=== PATIENT | male | born 1945 | race Caucasian/White ===

== ENCOUNTER 2017-01-09 10:45 | Outpatient (CLI) | payer MEDICARE ==
--- NOTE | ~2017-01-09 | HEMODYNAMI ---
PATIENT:SHABBIR UMAÑA MEDICAL RECORD: [id number] : 45 LOCATION:D.CAT ADMISSION DATE: 01/09/17 Generatedon:01/09/201714:25 Patient name: SHABBIR UMAÑA Patient #: [id number] SSN: D OB: 1945 Date of study: 01/09/2017 Page: Of Hemodynamic Procedure Report Patient Data Patient Demographics Procedure consent was obtained First Name: SHABBIR Gender: Male Last Name: CHASIDY : 1945 Patient #: [id number] Age: 71 year(s) Race: Unknown Additional ID: [id number] Contact details Address: [address] [address] State: [place] City: [place] Zip code: [address] Past Medical History Allergies: No known allergies Admission Admission Data Admission Date: 01/09/2017 Admission Time: 10:45 Lab Results Lab Result Date: 01/09/2017 Lab Result Time: 11:00 Biochemistry Name Units Result Min Max BUN mg/dl 25 --(----)-* 7 18 Creatinine mg/dl 1.5 --(----)-* 0.6 1.3 CBC Name Units Result Min Max Hematocrit % 38 *-(----)-- 42 54 Hemoglobin g/dl 12.9 -*(----)-- 13.5 17.5 Procedure Procedure Types Cath Procedure Diagnostic Procedure C [facility] w/Coronaries Miscellaneous Procedures Moderate Sedation up to 30 minutes Procedure Description Procedure Date Procedure Date: 01/09/2017 Procedure Start Time: 13:58 Procedure End Time: 14:23 Procedure Staff Name Function Jose Chinchilla MD Performing Physician Fabby Bourgeois RN Nurse Carmen Oliveros RT Scrub Scottie Reyes RT Monitor Procedure Data Cath Procedure Fluoroscopy Diagnostic fluoroscopy Total fluoroscopy Time: 4.3 time: 4.3 min min Diagnostic fluoroscopy Total fluoroscopy dose: 861 dose: 861 mGy mGy Contrast Material Contrast Material Type Amount (ml) Isovue 300 77 Entry Location Entry Primary Successful Side Size Upsize Upsize Entry Closure Nick ccessful Closure Location (Fr) 1 (Fr) 2 (Fr) Remarks Device Remarks Radial Right 6 Fr Mechanical artery Short Compression Femoral Right 5 Fr Exoseal artery Estimated blood loss: 5 ml Diagnostic catheters Device Type Used For End Catheter Placement Terumo 5Fr Rex 110cm Procedure catheter Cordis 5Fr JL 4.0 Procedure Catheter (MP) Cordis 5Fr 3DRC Catheter Procedure (MP) Cordis 5Fr Pigtail Procedure Catheter (MP) Procedure Complications No complications Procedure Medications Medication Administration Route Dosage Oxygen NC 2 l/min Lidocaine 2% added to field 20 Heparin Flush Bag added to field 2 bags (1000units/500ml NS) 0.9% NaCl I.V. 100 ml/hr Versed I.V. 1 mg Fentanyl I.V. 50 mcg Versed I.V. 1 mg Fentanyl I.V. 50 mcg Fentanyl I.V. 25 mcg Radial Cocktail added to field 1 syringe (Verapomil 2mg/Nitro 400mcg/Heparin 1500units) Hemodynamics Rest HGB: 12.9 (g/dl) Heart Rate: 54 (bpm) Pressure Samples Time Site Value (mmHg) Purpose Heart Use Rate(bpm) 14:14 LV 118/16,24 EDP 52 14:14 AO 123/60(82) Pullback 63 Gradients Valve Time Site Site 2 Mean SEP/DFP Peak To Heart Use 1 (mmHg) (sec/min) Peak Rate (mmHg) (bpm) Aortic 14:14 LV AO 13 14 63 123/60(82) Calculations Valve P-P Mean Valve Index Valve Source Name Gradient Area Flow (cm2) Aortic 13 13 Snapshots Pre Cath Intra NCS Post Cath Vital Signs Time Heart Resp SPO2 etCO2 NIBP (mmHg) Rhythm Pain Sedation Rate (ipm) (%) (mmHg) Status Level (bpm) 13:48:15 56 19 100 27 130/66(98) A-Fib 0 (11) 10(A) , No pain 13:52:51 78 14 100 30 119/72(105) A-Fib 0 (11) 10(A) , No pain 13:57:32 74 15 98 27 119/62(95) A-Fib 0 (11) 10(A) , No pain 14:02:11 61 15 100 20 108/58(80) A-Fib 0 (11) 9(A) , No pain 14:06:49 63 16 100 19.7 108/61(81) A-Fib 0 (11) 9(A) , No pain 14:11:27 67 16 100 28.8 121/59(93) A-Fib 0 (11) 9(A) , No pain 14:16:35 68 15 100 36.4 133/70(89) A-Fib 0 (11) 9(A) , No pain 14:21:44 62 16 100 15.9 123/67(91) A-Fib 0 (11) 10(A) , No pain Medications Time Medication Route Dose Verified Delivered Reason Notes Effectiveness by by 13:46:46 Oxygen NC 2 l/min Jose Buffie used for Amor Bourgeois RN procedure 13:46:56 Lidocaine 2% added 20ml Jose Jose for local to vial Amor Chinchilla MD anesthetic field 13:47:03 Heparin Flush added 2 bags Jose Jose used for Bag to Amor Chinchilla MD procedure (1000units/500ml field NS) 13:47:13 0.9% NaCl I.V. 100 Jose Buffie Per ml/hr Amor Bourgeois RN physician 13:50:48 Radial Cocktail added 1 Jose Jose for not (Verapomil to syringe Amor Chinchilla MD vasodilation used, 2mg/Nitro field femoral 400mcg/Heparin access 1500units) due to anatomy. 13:55:40 Versed I.V. 1 mg Jose Buffie for sedation Amor Bourgeois RN 13:55:47 Fentanyl I.V. 50 mcg Jose Buffie for sedation Amor Bourgeois RN 14:00:50 Versed I.V. 1 mg Jose Buffie for sedation Amor Bourgeois RN 14:00:54 Fentanyl I.V. 50 mcg Jose Buffie for sedation Amor Bourgeois RN 14:05:17 Fentanyl I.V. 25 mcg Jose Buffie for sedation Amor Bourgeois RN Procedure Log Time Note 13:22:01 Informed consent obtained and on chart 13:22:17 Diagnostic Cath status Elective 13:22:21 Fabby Bourgeois RN sent for patient. Start room use. 13:22:22 Time tracking: Regular hours 13:22:26 Plan of Care:Hemodynamics will remain stable., Cardiac rhythm will remain stable., Comfort level will be maintained., Respiratory function will remain adequate., Patient/ family verbilizes understanding of procedure., Procedure tolerated without complication., Recovers from procedure without complications.. 13:31:54 H&P Date Dictated: 01/02/2017 Within 30 days and on chart., H&P Addendum completed by physician on day of procedure. (MUST COMPLETE FOR ALL OUTPATIENTS). 13:32:34 Lab Result : BUN 25 mg/dl 13:32:34 Lab Result : Creatinine 1.5 mg/dl 13:32:34 Lab Result : Hemoglobin 12.9 g/dl 13:32:34 Lab Result : Hematocrit 38 % 13:32:37 Lab results completed and on chart. 13:38:25 Patient received from Pre/Post Procedure Room to CCL 1 Alert and oriented. Tansferred to table in Supine position. 13:38:26 Warm blankets applied, and devan hugger turned on for patient comfort. 13:38:26 Correct patient and procedure confirmed by team. 13:38:27 ECG and BP/O2 sat monitors applied to patient. 13:46:46 Oxygen 2 l/min NC was administered by Fabby Bourgeois RN; used for procedure; 13:46:56 Lidocaine 2% 20ml vial added to field was administered by Jose Chinchilla MD; for local anesthetic; 13:47:03 Heparin Flush Bag (1000units/500ml NS) 2 bags added to field was administered by Jose Chinchilla MD; used for procedure; 13:47:13 0.9% NaCl 100 ml/hr I.V. was administered by Fabby Bourgeois RN; Per physician; 13:47:17 Vital chart was started 13:50:48 Radial Cocktail (Verapomil 2mg/Nitro 400mcg/Heparin 1500units) 1 syringe added to field was administered by Jose Chinchilla MD; for vasodilation; not used, femoral access due to anatomy. 13:51:53 Baseline sample Acquired. 13:53:26 Rhythm: atrial fibrillation 13:53:28 Pre-op teaching completed and patient verbalized understanding. 13:53:29 Family in waiting room. 13:53:31 Patient NPO since Midnight. 13:53:37 Patient allergic to No known allergies 13:53:39 Is the patient allergic to Iodine/contrast media? No. 13:53:41 Is patient on blood thinner?Yes 13:53:43 Patient diabetic? No. 13:53:46 Previous problem with sedation/anesthesia? No ? 13:53:47 Snore? Yes 13:53:48 Sleep apnea? No 13:53:48 Deviated septum? No 13:53:49 Opens mouth fully? Yes 13:53:49 Sticks out tongue? Yes 13:53:51 Airway obstruction? No ? 13:53:54 Dentures? No ? 13:54:08 Modified Main's test Ulnar < 7 seconds 13:54:10 Patient pain scale 0/10 ?. 13:54:14 IV patent on arrival in left forearm with 0.9% NaCl at [facility]. 13:54:19 Right Radial & Right Groin area was prepped with chlora-prep and draped in sterile fashion 13:54:20 Alarms reviewed by R. N. 13:54:20 Sharps counted by scrub and verified by R.N. 13:54:23 Use device set Radial Dx 13:54:24 MBrace Wrist Support opened to sterile field. 13:54:25 Acist Manifold opened to sterile field. 13:54:25 Acist Hand Control opened to sterile field. 13:54:27 Tegaderm 4 x 4 opened to sterile field. 13:54:28 Acist Syringe opened to sterile field. 13:54:28 Medline Cath Pack opened to sterile field. 13:54:29 Bag Decanter opened to sterile field. 13:54:29 Terumo 6Fr Slender Glidesheath opened to sterile field. 13:54:29 St Girma 260cm J .035 wire opened to sterile field. 13:54:35 Physician arrived 13:54:36 --------ALL STOP TIME OUT------ 13:54:36 Final Timeout: patient, procedure, and site verified with staff and physician. All members of the team are in agreement. 13:54:38 Right Radial & Right Groin site verified by team. 13:54:41 Physical assessment completed. ASA score P 2 - A patient with mild systemic disease as per Jose Chinchilla MD. 13:54:44 Sedation plan: IV Moderate Sedation Versed, Fentanyl 13:55:40 Versed 1 mg I.V. was administered by Fabby Bourgeois RN; for sedation; 13:55:47 Fentanyl 50 mcg I.V. was administered by Fabby Bourgeois RN; for sedation; 13:56:58 Procedure started. 13:56:58 Full Disclosure recording started 13:58:11 Local anesthetic to right radial artery with Lidocaine 2% by Jose Chinchilla MD.INITIAL ACCESS ONLY 13:58:46 A 6 Fr Short sheath was inserted into the Right Radial artery 13:59:08 A Terumo 5Fr Rex 110cm catheter was advanced over the wire and used for Procedure. 13:59:20 Zero performed for pressure channel P1 14:00:50 Versed 1 mg I.V. was administered by Fabby Bourgeois RN; for sedation; 14:00:54 Fentanyl 50 mcg I.V. was administered by Fabby Bourgeois RN; for sedation; 14:03:15 Terumo 5Fr [place] Sheath opened to sterile field. 14:03:25 Use device set Multipack Set 14:03:26 Diagnostic Infinity 5Fr Multipack catheter opened to sterile field. 14:03:35 PERCUTANEOUS ENTRY 19GA needle opened to sterile field. 14:04:09 unable to go radial due to anatomy. Moving to femoral approach. 14:04:12 Local anesthetic to right femoral artery with Lidocaine 2% by Jose Chinchilla MD.ADDITIONAL ACCESS 14:05:17 Fentanyl 25 mcg I.V. was administered by Fabby Bourgeois RN; for sedation; 14:05:29 A 5 Fr sheath was inserted into the Right Femoral artery 14:05:37 A Cordis 5Fr JL 4.0 Catheter (MP) was advanced over the wire and used for Procedure. 14:07:02 LCA angiography performed. 14:10:50 Catheter exchanged over wire. 14:10:56 A Cordis 5Fr 3DRC Catheter (MP) was advanced over the wire and used for Procedure. 14:11:30 RCA angiography performed. 14:12:42 Catheter exchanged over wire. 14:13:52 A Cordis 5Fr Pigtail Catheter (MP) was advanced over the wire and used for Procedure. 14:14:18 LV gram done using DESOUZA 14:14:21 Injector settings: Ml/sec: 10, Volume: 20, 14:14:41 EF : 45 % 14:14:50 LV hemodynamics recorded. 14:16:46 Catheter removed. 14:17:34 Cordis 5Fr Exoseal opened to sterile field. 14:17:35 Terumo TR Band Standard opened to sterile field. 14:20:26 Sheath removed intact; hemostasis achieved with Exoseal to the Right Femoral artery. 14:20:31 Sheath removed intact; hemostasis achieved with Mechanical Compression to the Right Radial artery. 14:20:33 Procedure ended.(Physican Out) 14:22:01 Fluoroscopy time 04.30 minutes. 14:22:05 Fluoroscopy dose: 861 mGy 14:22:05 Flurop Dose total: 861 14:22:09 Contrast amount:Isovue 300 77ml. 14:22:10 Sharps counted by scrub and verified by R.N. 14:22:13 TR band inflated with 12cc of air. 14:22:15 Insertion/operative site no bleeding no hematoma. 14:22:17 Post-op/insertion site Right Femoral artery dressed using a 4 x 4 and Tegaderm. 14:22:20 Post right femoral artery:stable, soft, clean and dry 14:22:21 Post Procedure Pulses reassessed and unchanged 14:22:24 Post-procedure physical assessment completed. ASA score P 2 - A patient with mild systemic disease as per Jose Chinchilla MD. 14:22:26 Post procedure rhythm: unchanged. 14:22:30 Estimated blood loss: 5 ml 14:22:31 Post procedure instruction explained to patient.Patient verbalizes understanding. 14:22:32 Patient needs reinforcement of post procedure teaching. 14:22:41 Procedure type changed to Cath procedure, Diagnostic procedure, LHC, LHC w/Coronaries, Miscellaneous Procedures, Moderate Sedation up to 30 minutes 14:23:11 Procedure and supply charges have been captured, reviewed, submitted and are correct. 14:23:13 Procedure Complication : No complications 14:23:15 Vital chart was stopped 14:23:15 See physician's report for complete and final results. 14:23:17 Report given to Pre/Post Procedure Room. 14:23:20 Patient transfered to Pre/Post Procedure Room with Stretcher. 14:23:21 Procedure ended. 14:23:21 Full Disclosure recording stopped 14:23:26 End room use (Document Last) Device Usage Item Name Manufacture Quantity Catalog Hospital Part Current Minima l Lot# / Number Charge Number Stock Stock Serial# Code MBrace Wrist Advanced 1 140-0250-00 569603 13159 085517 5 Support Vascular Dynamics Acist Acist 1 88645 313006 948068 968779 5 Manifold [employer] Inc Acist Hand Acist 1 63381 057248 765075 750998 5 Control [employer] Inc Tegaderm 4 x 3M 1 1626W 335985 555080 433552 5 4 Acist Acist 1 42552 344232 493663 672001 20 Syringe Medical Systems Inc Medline Cath Cardinal 1 [id number] 227511 06716 998213 5 Pack Health Bag Decanter Microtek 1 2002S 124942 68494 465451 5 Medical Inc. Terumo 6Fr Terumo 1 [id number] 297499 966202 633907 [address] Girma 1 256585 306282 822496 710484 30 260cm J .035 wire Terumo 5Fr Terumo 1 40-1332 824372 053163 984878 5 Rex 110cm catheter Terumo 5Fr Terumo 1 [id number] 814613 023580 786696 40 [place] Sheath Diagnostic Cardinal 1 [id number] 598416 94261 062053 30 Infinity 5Fr Health Multipack catheter PERCUTANEOUS [facility] 1 [id number] 205741 793552 5 ENTRY 19GA needle Cordis 5Fr Cardinal 1 717147 5 JL 4.0 Health Catheter (MP) Cordis 5Fr Cardinal 1 774015 5 3DRC Health Catheter (MP) Cordis 5Fr Cardinal 1 900230 5 Pigtail Health Catheter (MP) Cordis 5Fr Cardinal 1 EX500 076126 485234 608033 10 Exoseal Health Terumo TR Terumo 1 [id number] 929785 898709 368349 40 Band Standard Signature Audit [place] Stage Time Signature Unsigned Intra-Procedure 01/09/2017 Scottie Reyes 2:25:26 PM RT(R) Signatures Monitor : Scottie Reyes RT Signature : Date : Time : [facility] [address] [place] [address]
[2017-01-09] MEDS ORDERED: ELIQUIS5 MG PO (11:05)
[2017-01-09] MEDS ORDERED: ZESTRIL40 MG PO (11:05)
[2017-01-09] MEDS ORDERED: PROPAFENONE HC225 MG PO (11:05)
[2017-01-09] MEDS ORDERED: LOVASTATIN40 MG PO (11:06)
[2017-01-09] MEDS ORDERED: K-TAB10 MEQ PO (11:06)
[2017-01-09] MEDS ORDERED: FLOMAX0.4 MG PO (11:06)
[2017-01-09] MEDS ORDERED: FUROSEMIDE40 MG PO (11:06)
[2017-01-09] MEDS ORDERED: TOPROL XL50 MG PO (11:07)
[2017-01-09] MEDS ORDERED: BAYER CHEWABLE81 MG PO (11:07)
[2017-01-09 11:13] VITALS: BP 155/71; BMI 28.6
[2017-01-09 11:23] LABS: BASOPHILS 0.1 % (0-2); EOSINOPHILS 0.2 % (0-7); HEMOGLOBIN 12.9 g/dL (13.5-17.5); IMMATURE GRANULOCYTES 0.1 % (0-5); LYMPHOCYTES 12.3 % (15-50); MCH 34.3 pg (26.0-34.0); MCHC 33.9 g/dL (31.0-37.0); MCV 101.1 fL (80.0-100.0); MEAN PLATELET VOLUME 10.8 fL (7.4-10.4); MONOCYTES 10.4 % (2-11); NEUTROPHILS 76.9 % (40-80); PLATELET COUNT 222 10x3/uL (130-400); RBC 3.76 10x6/uL (4.20-6.10); RDW 11.6 % (11.5-14.5); WBC 8.2 10x3/uL (4.8-10.8)
[2017-01-09 11:34] LABS: ANION GAP 15.7 mmol/L (8-16); CALCIUM 10.1 mg/dL (8.5-10.1); CARBON DIOXIDE 25.7 mmol/L (21.0-32.0); CREATININE - SERUM 1.5 mg/dL (0.6-1.3); POTASSIUM - SERUM 4.4 mmol/L (3.5-5.1)
--- NOTE | 2017-01-09 14:35 | NUR ---
1435 RECEIVED PT FROM [employer]. PT IS DROWSY, DENIES ANY C/O. A-FIB ON MONITOR WITH RATE OF 56. IV PATENT AND INFUSING PER ORDERS. DRESSING TO RIGHT GROIN IS CDI, AREA IS SOFT AND NONTENDER. PEDAL PULSES PALPABLE. DRESSING TO RIGHT WRIST IS CDI, AREA FREE FROM HEMATOMA. FINGERS WARM, CAP REFILL IS BRISK. CALL LIGHT IS IN REACH.
--- NOTE | 2017-01-09 14:54 | NUR ---
1450 DRESSINGS TO RIGHT WRIST AND RIGHT GROIN ARE CDI, AREAS FREE FROM BLEEDING OR HEMATOMA. RR EVEN AND UNLABORED. A-FIB WITH RATE OF 62, BP IS 129/65. FAMILY AT BEDSIDE, CALL LIGHT IN REACH. PULSES PALPABLE RIGHT HAND AND RIGHT FOOT.
--- NOTE | 2017-01-09 15:21 | NUR ---
1505 DRESSINGS REMAIN CDI, FAMILY AT BEDSIDE, CALL LIGHT IN REACH. A FIB WITH RATE OF 56. DENIES ANY C/O CHEST DISCOMFORT
--- NOTE | 2017-01-09 15:46 | NUR ---
1530 PT DENIES ANY C/O. DRESSINGS CDI, NO BLEEDING OR HEMATOMA AT EITHER SITE. 4 CC OF AIR REMOVED FROM TR BAND WITH NO BLEEDING NOTED.
--- NOTE | 2017-01-09 16:15 | NUR ---
1615 ALL AIR RMOVED FROM TR BAND WITH NO BLEEDING OR HEMATOMA NOTED. PT DENIES ANY C/O. DRESSING TO RIGHT GROIN IS CDI, AREA IS SOFT AND NONTENDER. PULSES PALPABLE. AT BEDSIDE, CALL LIGHT IN REACH.
--- NOTE | 2017-01-09 16:19 | NUR ---
1545 4 CC OF AIR REMOVED FROM TR BAND, NO BLEEDING OR HEMATOMA NOTED. PT DENIES ANY C/O. DRESSING TO RIGHT GROIN IS CDI, AREA SOFT AND NONTENDER. PULSES PALPABLE, CAP REFILL IS BRISK.
--- NOTE | 2017-01-09 16:45 | NUR ---
1645 HOB ELEVATED, IV DC'D WITH CATH INTACT. SANDWICH SERVED. PT DENIES ANY C/O.
--- NOTE | 2017-01-09 17:09 | NUR ---
1705 DC INSTRUCTIONS HAVE BEEN REVIEWED, PT HAS MAGALY SANDWICH WITH NO C/O NAUSEA. 2X2 AND TEGADERM TO RIGHT WRIST CATH SITE IS CDI. DRESSING TO RIGHT GROIN CDI. PT DRESSING FOR DC TO HOME.
--- NOTE | 2017-01-09 17:10 | NUR ---
1720 ASSISTED PT TO THE BATHROOM AND PT VOIDED QS. PT DRESSED FOR DC. DENIES ANY C/O. DRESSINGS REMAIN CDI. PT ESCORTED TO PRIVATE AUTO VIA WC BY NURSE WTIH DRIVING HIM HOME.
== END 2017-01-09 17:19 | disposition home or self-care (01) ==
LOC: D.CATH 10:45
PROVIDERS: Internal Medicine Cardiovascular Disease
DX: I50.9 Heart failure, unspecified (principal); I48.91 Unspecified atrial fibrillation; I10 Essential (primary) hypertension; Z01.812 Encounter for preprocedural laboratory examination

== ENCOUNTER 2017-02-08 10:49 | Outpatient (CLI) | payer MEDICARE ==
[~2017-02-08] VITALS: Ht 180.3 cm; Wt 96.4 kg
--- NOTE | ~2017-02-08 | HEMODYNAMI ---
PATIENT:SHABBIR UMAÑA MEDICAL RECORD: [id number] : 45 LOCATION:D.CAT ADMISSION DATE: 02/08/17 Generatedon:02/08/201714:20 Patient name: SHABBIR UMAÑA Patient #: [id number] SSN: D OB: 1945 Date of study: 02/08/2017 Page: Of Hemodynamic Procedure Report Patient Data Patient Demographics Procedure consent was obtained First Name: SHABBIR Gender: Male Last Name: CHASIDY : 1945 Patient #: [id number] Age: 71 year(s) Race: Additional ID: [id number] Contact details Address: [address] [address] State: [place] City: [place] Zip code: [address] Past Medical History Allergies: No known allergies Admission Admission Data Admission Date: 02/08/2017 Admission Time: 10:49 Procedure Procedure Types Cath Procedure Diagnostic Procedure Cardioversion Procedure Description Procedure Date Procedure Date: 02/08/2017 Procedure Start Time: 14:09 Procedure End Time: 14:18 Procedure Staff Name Function David Weiss RT Monitor Duke Winter RN Nurse Denise Curtis RT Front Loader Residential Driver Jose Chinchilla MD Performing Physician Procedure Medications Medication Administration Route Dosage Oxygen NC 2 l/min Refer to Anesthesia Notes for Sedation Medications Hemodynamics Rest Heart Rate: 78 (bpm) Snapshots Pre Cath Intra NCS Post Cath Vital Signs Time Heart Resp SPO2 etCO2 NIBP (mmHg) Rhythm Pain Sedation Rate (ipm) (%) (mmHg) Status Level (bpm) 13:48:24 76 16 99 0 172/82(140) A-Fib 0 (11) 10(A) , No pain 13:52:53 94 13 99 0 175/91(140) A-Fib 0 (11) 10(A) , No pain 13:57:27 79 16 100 0 153/79(131) A-Fib 0 (11) 10(A) , No pain 14:01:51 82 17 100 0 158/84(127) A-Fib 0 (11) 10(A) , No pain 14:06:16 73 15 100 35.3 166/92(131) A-Fib 0 (11) 10(A) , No pain 14:10:42 75 15 100 27.7 172/92(121) A-Fib 0 (11) 9(A) , No pain 14:15:14 78 16 96 24.7 166/90(135) NSR 0 (11) 10(A) , No pain Medications Time Medication Route Dose Verified Delivered Reason Notes Effectiven ess by by 14:11:19 Oxygen NC 2 Jose Wall used for l/min Amor Winter medical editor 14:11:23 Refer to Jose Wall Anesthesia Amor Winter RN Notes for Sedation Medications Procedure Log Time Note 13:34:50 Informed consent obtained and on chart 13:34:57 Diagnostic Cath Status : Elective 13:35:36 David Weiss RT(R) (CV) sent for patient. Start room use. 13:36:00 Time tracking: Regular hours 13:36:06 Plan of Care:Hemodynamics will remain stable., Cardiac rhythm will remain stable., Comfort level will be maintained., Respiratory function will remain adequate., Patient/ family verbilizes understanding of procedure., Procedure tolerated without complication., Recovers from procedure without complications.. 13:40:34 Patient received from Pre/Post Procedure Room to CCL 3 Alert and oriented. Tansferred to table in Supine position. 13:40:37 Warm blankets applied, and devan hugger turned on for patient comfort. 13:40:37 Correct patient and procedure confirmed by team. 13:40:39 ECG and BP/O2 sat monitors applied to patient. 13:47:04 Baseline sample Acquired. 13:47:04 Vital chart was started 13:47:16 Rhythm: atrial fibrillation 13:47:18 Full Disclosure recording started 13:48:15 H&P Date Dictated: 02/01/2017 Within 30 days and on chart., H&P Addendum completed by physician on day of procedure. (MUST COMPLETE FOR ALL OUTPATIENTS). 13:48:27 Pre-procedure instructions explained to patient. 13:48:29 Pre-op teaching completed and patient verbalized understanding. 13:48:33 Family in patients room. 13:48:36 Patient NPO since Breakfast. 13:52:55 Patient allergic to No known allergies 13:53:08 Is patient on blood thinner?Yes 13:53:15 ACC The patient was administered the following blood thiners within the last 24 hours: Nereidaqucarlos 13:53:49 ----Pre-sedation anethsthesia assessment.---- 13:53:53 Previous problem with sedation/anesthesia? No ? 13:53:55 Snore? Yes 13:53:56 Sleep apnea? Yes 13:53:58 Deviated septum? No 13:53:59 Opens mouth fully? Yes 13:54:02 Sticks out tongue? Yes 13:54:04 Airway obstruction? No ? 13:54:15 IV patent on arrival in left wrist with 0.9% NaCl at [facility]. 13:54:28 ------Cardioversion------ 13:54:29 Quick combo pads placed on patients chest and back. 13:55:27 Alarms reviewed by Fritz López 14:00:02 IN ROOM 1 14:04:21 AL BLUNT WITH ANESTHESIA IS HERE 14:08:38 Physician arrived 14:08:38 --------ALL STOP TIME OUT------ 14:08:39 Final Timeout: patient, procedure, and site verified with staff and physician. All members of the team are in agreement. 14:08:50 Physical assessment completed. ASA score P 2 - A patient with mild systemic disease as per Jose Chinchilla MD. 14:08:55 Sedation plan: TIVA Medication:Propofol 14:09:09 Procedure started. 14:11:19 Oxygen 2 l/min NC was administered by Duke Winter RN; used for procedure; 14:11:23 Refer to Anesthesia Notes for Sedation Medications was administered by Duke Winter RN; ; 14:11:29 Defibrillator synced and charged to 200 Joules. 14:11:52 Shock delivered. 14:13:41 Patient cardioverted to sinus rhythm , junctional. 14:13:50 LBBB 14:16:43 Procedure ended.(Physican Out) 14:18:15 Post-procedure physical assessment completed. ASA score P 2 - A patient with mild systemic disease as per Jose Chinchilla MD. 14:18:22 Post procedure instruction explained to patient.Patient verbalizes understanding. 14:18:24 Procedure and supply charges have been captured, reviewed, submitted and are correct. 14:18:26 Vital chart was stopped 14:18:27 See physician's report for complete and final results. 14:18:30 Report given to Pre/Post Procedure Room. 14:18:40 Patient transfered to Pre/Post Procedure Room with Stretcher. 14:18:42 Procedure ended. 14:18:42 Full Disclosure recording stopped 14:18:50 End room use (Document Last) Signature Audit Byron Stage Time Signature Unsigned Intra-Procedure 02/08/2017 David Weiss 2:20:06 PM RT(R) (CV) Signatures Monitor : David Weiss RT Signature : Date : Time : [facility] [address] [place] [address]
[~2017-02-08 10:49] MED LIST: BAYER CHEWABLE81 MG PO; ELIQUIS5 MG PO; FLOMAX0.4 MG PO; FUROSEMIDE40 MG PO; K-TAB10 MEQ PO; LOVASTATIN40 MG PO; PROPAFENONE HC225 MG PO; TOPROL XL50 MG PO; ZESTRIL40 MG PO
[2017-02-08 11:50] VITALS: BP 169/77; Ht 180.3 cm; Wt 96.4 kg
[2017-02-08 11:53] LABS: BASOPHILS 0.1 % (0-2); EOSINOPHILS 0.4 % (0-7); HEMATOCRIT 41.5 % (42.0-54.0); HEMOGLOBIN 14.1 g/dL (13.5-17.5); IMMATURE GRANULOCYTES 0.1 % (0-5); LYMPHOCYTES 7.4 % (15-50); MCH 32.8 pg (26.0-34.0); MCV 96.5 fL (80.0-100.0); MEAN PLATELET VOLUME 10.6 fL (7.4-10.4); MONOCYTES 7.2 % (2-11); NEUTROPHILS 84.8 % (40-80); RDW 11.8 % (11.5-14.5); WBC 7.6 10x3/uL (4.8-10.8)
[2017-02-08 11:54] LABS: PLATELET COUNT 145 10x3/uL (130-400)
[2017-02-08 12:03] LABS: ANION GAP 14.1 mmol/L (8-16); CALCIUM 9.9 mg/dL (8.5-10.1); CREATININE - SERUM 1.3 mg/dL (0.6-1.3); POTASSIUM - SERUM 4.1 mmol/L (3.5-5.1)
[2017-02-08 12:04] LABS: INR 1.31 (0.85-1.17); PROTIME 16.2 SECONDS (11.6-15.0)
--- NOTE | 2017-02-08 15:20 | NUR ---
1440 SITTING UP IN BED EATING TURKEY SANDWICH. FAMILY AT SIDE. NSR RATE 83 W NO C/O CHEST PAIN. DENIES NEEDS AT THIS TIME. 1520 PIV REMOVED FROM L WRIST WITH BANDAID APPLIED. UP TO BEDSIDE TO DRESS WITH ASSIST FROM . D/C INSTRUCTIONS DISCUSSED AT BEDSIDE. ELIQUIS DISCUSSED. VERBALZIED UNDERSTANDING TO CONTINUE TO TAKE UNTIL FOLLOW UP WITH SAL. WHEELED OUT VIA WHEELCHAIR BY CATH TEAM.
== END 2017-02-08 15:23 | disposition home or self-care (01) ==
LOC: D.CATH 10:49
PROVIDERS: Internal Medicine Cardiovascular Disease
DX: I48.91 Unspecified atrial fibrillation (principal)

== ENCOUNTER → 2019-06-10 14:12 | Outpatient (CLI) | payer MEDICARE ==
[2017-02-08 11:50] VITALS: BMI 29.6
== END | disposition home or self-care (01) ==
LOC: D.HCCECHO 06-03 14:00
PROVIDERS: ATTEND Internal Medicine Cardiovascular Disease
DX: I10 Essential (primary) hypertension (principal)